=== PATIENT | male | born 1950 | race Caucasian/White ===

== ENCOUNTER 2021-10-17 22:04 | Emergency (ER) | payer OTHER, SELFPAY ==
[2021-10-17 22:14] VITALS: BP 133/75; PULSE 83; RESP 18; TEMP 36.6; O2SAT 100; BMI 22.4
== END 2021-10-18 00:32 | disposition left against medical advice (07) ==
PROVIDERS: Emergency Provider Emergency Medicine
CPT/HCPCS: 99281

== ENCOUNTER 2022-10-14 22:47 | Emergency (ER) | payer OTHER, SELFPAY ==
[2022-10-14 22:47] VITALS: BP 117/67; PULSE 67; RESP 19; TEMP 36.8; O2SAT 97; BMI 22.3
--- NOTE | 2022-10-14 23:04 | DI.RAD.S_ITS ---
PROCEDURE: XR CHEST 1V INDICATIONS: chest pain TECHNIQUE: One view of the chest was acquired. COMPARISON: None. FINDINGS: Surgical changes and devices: Electronic control device overlies the upper right chest with leads extending cephalad above the imaging margin.. Lungs and pleura: Lungs are clear except for left lower lobe linear scarring.. No pleural effusions or pneumothorax. Mediastinum: Mediastinal contours appear normal. Heart size is normal. Bones and chest wall: No suspicious bony lesions. Overlying soft tissues appear unremarkable. IMPRESSION: No definite source of acute onset chest pain found. Linear scarring left lung base. Control device as discussed. Dictated by: Jt Childress M.D. on 10/14/2022 at 23:45 Approved by: Jt Childress M.D. on 10/14/2022 at 23:47
[2022-10-14 23:13] LABS: Add Manual Diff / Slide Review NO; Basophils Absolute Auto 0 /uL (0-100); Basophils Percent Auto 0.6 % (0-2); Eosinophils Absolute Auto 100 /uL (0-450); Hematocrit 36.7 % (41-53); Hemoglobin 12.6 g/dL (13.5-17.5); Lymphocytes Absolute Auto 1600 /uL (1100-4500); Lymphocytes Percent Auto 26.5 % (25-40); Mean Corpuscular HGB Conc 34.2 % (30-36); Mean Corpuscular Hemoglobin 32.9 PG (26-34); Mean Corpuscular Volume 96.2 fL (80-100); Monocytes Absolute Auto 700 /uL (0-900); Neutrophils Absolute Auto 3700 /uL (1500-7000); Neutrophils Percent Auto 59.9 % (50-75); Platelet Count 162 X10^3/uL (150-400); Red Blood Cell Count 3.81 X10^6/uL (4.5-5.9); Red Cell Distribution Width 14.2 % (11.6-14.8); White Blood Cell Count 6.1 X10^3/uL (4.5-11.0)
[2022-10-14 23:17] LABS: PTT Partial Thromboplastin Tim 31 SECONDS (26-36)
[2022-10-14 23:20] LABS: Alanine Aminotransferase 8 IU/L (<50); Albumin 3.7 g/dL (3.5-5.0); Albumin Globulin Ratio 1.2 (1.0-2.8); Alkaline Phosphatase 98 U/L (38-126); Aspartate Aminotransferase 28 IU/L (17-59); BUN Creatinine Ratio 26.6 (6-22); Bilirubin Total 0.5 mg/dL (0.2-1.3); Blood Urea Nitrogen 17 mg/dL (9-20); Calcium 8.9 mg/dL (8.4-10.2); Carbon Dioxide 27 mmol/L (22-32); Chloride 102 mmol/L (98-107); Creatine Kinase 162 U/L (55-170); Estimated Glomerular Filt Rate > 60 mL/min (>60); Glucose 83 mg/dL (80-110); HEMOLYSIS < 15 (0-50); Lipase 49 U/L (23-300); Magnesium 1.9 mg/dL (1.6-2.3); Potassium 3.9 mmol/L (3.4-5.1); Sodium 135 mmol/L (137-145); Total Protein 6.7 g/dL (6.3-8.2)
[2022-10-14 23:31] LABS: Troponin I < 0.012 ng/mL (0.01-0.034)
[2022-10-15] VITALS (8 sets, daily range): BP systolic 107–163; BP diastolic 62–78; PULSE 58–69; RESP 16–24; O2SAT 95–100
[2022-10-15 01:33] LABS: Troponin I < 0.012 ng/mL (0.01-0.034)
--- NOTE | 2022-10-15 03:39 | ED_ITS ---
HPI - Chest Pain General Chief Complaint: Chest Pain Stated Complaint: neck pain Time Seen by Provider: 10/14/22 23:52 Source: patient and EMS Mode of arrival: EMS History of Present Illness HPI narrative: 71-year-old gentleman with a history of Parkinson's disease who recently underwent significant dental work with oral surgery for dental implants and temporary dentures placed while the implants are healing. Since this he has been having significant difficulty with talking, swallowing he has been sent to speech therapy and he continues to have difficulty in concerns for aspiration. He is concerned that the combination of his inappropriately aligned temporary teeth and his Parkinson's disease is going to lead to an aspiration pneumonia. This evening he developed increasing pain in the right side of his jaw with some vague eye discomfort. He went to a fire station around the corner from his house and the medic was concerned that this might be cardiac. He was given a single nitroglycerin which relieved the musculoskeletal pain of his neck interest transported the emergency department for further evaluation. He does not describe any chest pain, orthopnea, exertional dyspnea, palpitations. He has been having significant difficulty with speech, swallowing, eating all secondary to his temporary dentures that are far too large for his mouth in for worsening him into a class 3 orthodontic bite Related Data Allergies Allergy/AdvReac Type Severity Reaction Status Date / Time No Known Drug Allergies Allergy Verified 10/14/22 23:19 Review of Systems Review of Systems Narrative: Pertinent positive and negative findings as per HPI Patient History Medical History (Updated 10/15/22 @ 04:25 by Mónica Boykin MD) Parkinsons disease Social History Smoking Status: Never smoker Smoking Status: Never smoker tobacco type: cigarettes alcohol intake frequency: holidays/special occasions only Substance Use Type: does not use Exam Initial Vital Signs Initial Vital Signs: Vital Signs Temperature 98.2 F 10/14/22 22:47 Pulse Rate 67 10/14/22 22:47 Respiratory Rate 19 10/14/22 22:47 Blood Pressure 117/67 10/14/22 22:47 Pulse Oximetry 97 10/14/22 22:47 Oxygen Delivery Method Room Air 10/14/22 22:47 General: Healthy appearing, in no acute distress. Able to give a complete and coherent history. Well-nourished well-developed HEENT: Moist mucous membranes, normal sclera with reactive pupils, upper teeth/dentures are causing his upper lip 2 per to protrude, his lower dentures are overriding the lower jaw do not articulate in any way with the upper and are forcing his jaw forward almost 4 mm. He is having difficulty speaking and is using all neck muscles including his platysma muscle to simply manipulate his tongue to try to get words out because of the dramatically poorly fitted upper and lower temporary dentures Neck: No JVD, excessive accessory neck muscle use to compensate for dental issues Respiratory: Lungs are clear to auscultation, no wheezing no rales no rhonchi. Full and symmetrical air movement Cardiac: Regular rate and rhythm no murmurs no bruits Abdomen: Soft, nontender, good bowel tones, no flank pain Skin: Warm and dry, no rashes Neurologic: Grossly neurologically intact with no obvious asymmetries or abnormalities, no significant parkinsonian tremor or rigidity appreciated on today's exam Extremities: No trauma, well perfused Psych: Cooperative, appropriate insight and affect Course Orders Ordered: ED Orders 10/14/22 22:55 Complete Blood Count AUTO DIFF Stat Comprehensive Metabolic Panel Stat Lipase Stat Magnesium Stat PTT Partial Thromboplastin Yann Stat Prothrombin Time INR Stat Troponin & CK Cardiac Panel Stat 10/14/22 22:59 EKG-12 Lead Stat 10/14/22 23:04 XR chest 1V Stat 10/15/22 01:05 Troponin I Stat Vital Signs Vital signs: Vital Signs - 8 hr 10/14/22 22:47 10/15/22 01:38 Temperature 98.2 F Pulse Rate 67 59 L Respiratory Rate 19 18 Blood Pressure 117/67 Pulse Oximetry 97 100 Oxygen Delivery Method Room Air Room Air MDM - Chest Pain Lab Data 10/14/22 22:55 10/14/22 22:55 Labs: Lab Results 10/14/22 10/14/22 10/14/22 Range/Units 22:55 22:55 22:55 WBC 6.1 (4.5-11.0) X10^3/uL RBC 3.81 L (4.5-5.9) X10^6/uL Hgb 12.6 L (13.5-17.5) g/dL Hct 36.7 L (41-53) % MCV 96.2 (80-100) fL MCH 32.9 (26-34) PG MCHC 34.2 (30-36) % RDW 14.2 (11.6-14.8) % Plt Count 162 (150-400) X10^3/uL Neut % (Auto) 59.9 (50-75) % Lymph % (Auto) 26.5 (25-40) % [place] % (Auto) 11.0 (3-14) % Eos % (Auto) 2.0 (2-4) % Baso % (Auto) 0.6 (0-2) % Neut # (Auto) 3700 (0660-1155) /uL Lymph # (Auto) 1600 (5799-4546) /uL [place] # (Auto) 700 (0-900) /uL Eos # (Auto) 100 (0-450) /uL Baso # (Auto) 0 (0-100) /uL PT 12.0 (10.1-12.7) SECONDS INR 1.0 (0.9-1.3) APTT 31 (26-36) SECONDS Sodium 135 L (137-145) mmol/L Potassium 3.9 (3.4-5.1) mmol/L Chloride 102 (98-107) mmol/L Carbon Dioxide 27 (22-32) mmol/L BUN 17 (9-20) mg/dL Creatinine 0.64 L (0.66-1.25) mg/dL Estimated GFR > 60 (>60) mL/min BUN/Creatinine Ratio 26.6 H (6-22) Glucose 83 (80-110) mg/dL Calcium 8.9 (8.4-10.2) mg/dL Magnesium 1.9 (1.6-2.3) mg/dL Total Bilirubin 0.5 (0.2-1.3) mg/dL AST 28 (17-59) IU/L ALT 8 (<50) IU/L Alkaline Phosphatase 98 (38-126) U/L Total Creatine Kinase 162 (55-170) U/L Troponin I < 0.012 (0.01-0.034) ng/mL Total Protein 6.7 (6.3-8.2) g/dL Albumin 3.7 (3.5-5.0) g/dL Globulin 3.0 (1.7-4.1) g/dL Albumin/Globulin Ratio 1.2 (1.0-2.8) Lipase 49 (23-300) U/L 10/15/22 Range/Units 01:05 WBC (4.5-11.0) X10^3/uL RBC (4.5-5.9) X10^6/uL Hgb (13.5-17.5) g/dL Hct (41-53) % MCV (80-100) fL MCH (26-34) PG MCHC (30-36) % RDW (11.6-14.8) % Plt Count (150-400) X10^3/uL Neut % (Auto) (50-75) % Lymph % (Auto) (25-40) % [place] % (Auto) (3-14) % Eos % (Auto) (2-4) % Baso % (Auto) (0-2) % Neut # (Auto) (5122-4548) /uL Lymph # (Auto) (4752-4250) /uL [place] # (Auto) (0-900) /uL Eos # (Auto) (0-450) /uL Baso # (Auto) (0-100) /uL PT (10.1-12.7) SECONDS INR (0.9-1.3) APTT (26-36) SECONDS Sodium (137-145) mmol/L Potassium (3.4-5.1) mmol/L Chloride (98-107) mmol/L Carbon Dioxide (22-32) mmol/L BUN (9-20) mg/dL Creatinine (0.66-1.25) mg/dL Estimated GFR (>60) mL/min BUN/Creatinine Ratio (6-22) Glucose (80-110) mg/dL Calcium (8.4-10.2) mg/dL Magnesium (1.6-2.3) mg/dL Total Bilirubin (0.2-1.3) mg/dL AST (17-59) IU/L ALT (<50) IU/L Alkaline Phosphatase (38-126) U/L Total Creatine Kinase (55-170) U/L Troponin I < 0.012 (0.01-0.034) ng/mL Total Protein (6.3-8.2) g/dL Albumin (3.5-5.0) g/dL Globulin (1.7-4.1) g/dL Albumin/Globulin Ratio (1.0-2.8) Lipase (23-300) U/L MDM Narrative Medical decision making narrative: CC: Right-sided neck pain, acute uncertain prognosis Complicating co-morbidities: Parkinson's disease, recent dental implants with temporary dentures and no anatomic alignment with accessory muscle use to manipulate his jaw in every position including speech and swallowing. Data collected from: patient, Differential considered: Acute coronary syndrome, aortic dissection, acute neck strain Exam documented above, pertinent findings include: Dramatically inappropriately fitting dentures such that he is unable to speak, enunciate, swallow and is using multiple accessory neck muscles to try and accomplish these physical processes. Remainder of physical exam is entirely benign Lab Test results independently reviewed as above. Pertinent findings: Metabolic panel is reassuring Troponin and repeat troponin are both undetectable Independently reviewed EKG reveals sinus rhythm at a rate of 68. Leftward axis, left anterior fascicular block no acute ischemic changes. Imaging studies independently reviewed: Chest x-ray has no acute findings Discussion: 71-year-old gentleman with main complaint of right neck pain that was relieved by nitroglycerin when administered by medics. Cardiac workup is unremarkable. I suspect that the majority of his neck pain is secondary to accessory muscle use because of his poor dentition and inability to speak and swallow due to the large and non articulating temporary dentures. His HEART score is 1 for age only. At this point there is no indication of life- threatening etiology, acute coronary syndrome, dissection or alternate explanation that would require further imaging or hospital admission. I did suggest that he follow up with his dentist and ask them to drain either fit him with his appropriately fitting new dentures and at the very least re fit his temporary is so that he is not at such high aspiration risk and is actually able to eat food. At this point he is safe for discharge home Discharge Plan Departure Patient Disposition: Home Clinical Impression: Dysarthria Neck muscle strain Qualifiers: Encounter type: initial encounter Qualified Code(s): S16.1XXA - Strain of muscle, fascia and tendon at neck level, initial encounter Dysphagia Qualifiers: Dysphagia type: other dysphagia Qualified Code(s): R13.19 - Other dysphagia Instructions: DI for Musculoskeletal Pain Activity Restrictions/Additional Instructions: Thank you for coming in today Your cardiac workup was entirely reassuring. I do not see any life-threatening causes for your symptoms today. I suspect that the right-sided neck muscle pain that you are experiencing is related to your poorly fitting dentures. You are having to use your neck muscles in an entirely different way to compensate for the large dentures that are not allowing you to speak or swallow appropriately. I strongly encourage you to follow-up with your dentist to either expedite your real dentures or re-evaluate current ones so that they are not putting your health and safety at risk with such poor fit and dentition. If you find that you are getting worse or develop any new symptoms, please feel free to return to the emergency department for further evaluation. Stand Alone Forms: Patient Portal/API
== END 2022-10-15 04:36 | disposition home or self-care (01) ==
PROVIDERS: Emergency Provider Emergency Medicine
DX: S16.1XXA Strain of muscle, fascia and tendon at neck level, initial encounter (principal); R13.10 Dysphagia, unspecified; R47.1 Dysarthria and anarthria; R07.9 Chest pain, unspecified
CPT/HCPCS: 71045; 80053; 82550; 83690; 83735; 84484; 85025; 85610; 85730; 93005; 99283; 99284

== ENCOUNTER 2023-03-09 05:33 | Emergency (ER) | payer OTHER, SELFPAY ==
[2023-03-09] VITALS (7 sets, daily range): BP systolic 119–166; BP diastolic 77–94; PULSE 82–100; RESP 22; TEMP 36.4–36.7; O2SAT 95–100; BMI 20.7
--- NOTE | 2023-03-09 05:40 | DI.RAD.S_ITS ---
PROCEDURE: XR CHEST 2V INDICATIONS: possible aspiration on rice noodles TECHNIQUE: 2 views of the chest were acquired. COMPARISON: [facility], , XR CHEST 1V, 10/14/2022, 23:17. FINDINGS: Surgical changes and devices: There is a electronic device with leads pointing cephalic along the right neck. Lungs and pleura: Lungs are clear. No pleural effusions or pneumothorax. Mediastinum: Mediastinal contours are normal. Heart size is normal. Bones and chest wall: No suspicious bony abnormalities. Soft tissues appear unremarkable. IMPRESSION: No acute cardiopulmonary abnormality is seen. No significant discrepancy with the piece dye worker radiology preliminary report. Dictated by: Hamida Healy M.D. on 03/09/2023 at 8:08 Approved by: Hamida Healy M.D. on 03/09/2023 at 8:09
--- NOTE | 2023-03-09 06:15 | ED.GENADULT ---
HPI - General Adult General Chief complaint: Shortness of Breath/Dyspnea Stated complaint: aspirated? Time Seen by Provider: 03/09/23 05:33 Source: patient and EMS Mode of arrival: EMS History of Present Illness HPI narrative: 72-year-old male with history of Parkinson's disease presents by EMS for possible aspiration event. [place] he had a choking episode. His did the Heimlich maneuver and removed several noodles from his mouth, but was concerned that something may have been left behind and they called 911. Vital signs reported unremarkable en route. Related Data Allergies Allergy/AdvReac Type Severity Reaction Status Date / Time No Known Drug Allergies Allergy Verified 10/14/22 23:19 Review of Systems Review of Systems Narrative: Negative except as noted above Patient History Medical History (Updated 03/09/23 @ 06:27 by Heaven Hermosillo MD) Parkinsons disease Social History Smoking Status: Former smoker Smoking Status: Former smoker tobacco type: cigarettes alcohol intake frequency: holidays/special occasions only Substance Use Type: does not use Exam Initial Vital Signs Initial Vital Signs: Vital Signs Pulse Rate 100 H 03/09/23 05:37 Pulse Oximetry 98 03/09/23 05:37 Oxygen Delivery Method Room Air 03/09/23 05:37 Const: Awake, alert, no acute distress, nontoxic appearing Eyes: PERRL, EOMI, conjunctiva normal ENT: Atraumatic, dentition normal, mucous membranes moist, no foreign objects Cardiac: regular rate, regular rhythm RESP: unlabored, clear bilaterally, no wheezing GI: Atraumatic, soft, nontender, nondistended, no rebound, no guarding MSK: Atraumatic, full range of motion, pulses equal Skin: Warm, Dry, intact, no rashes Neuro: AO x3, CN II-XII grossly intact, moves all extremities Psych: affect normal, mood normal, not suicidal, not homicidal Course Course Course Narrative: Possible aspiration event, patient is concerned that there may be needlestick left behind because he can still feel it taste in the back of his throat. There is no foreign or food objects in the back of patient's throat. Lungs are clear to auscultation bilaterally. Two-view chest x-ray shows no evidence of foreign body or no sequela of aspiration. Patient counseled of chest x-ray results at bedside and supportive measures counseled for home Orders Ordered: ED Orders 03/09/23 05:40 Chest [XR chest 2V] Stat Vital Signs Vital signs: Vital Signs - 8 hr 03/09/23 05:39 Temperature 97.6 F Pulse Rate 93 H Respiratory Rate 22 Blood Pressure 166/94 H Pulse Oximetry 100 Oxygen Delivery Method Room Air Discharge Plan Departure Patient Disposition: Home Clinical Impression: Choking episode Aspiration of food Qualifiers: Encounter type: initial encounter Qualified Code(s): T17.928A - Food in respiratory tract, part unspecified causing other injury, initial encounter Instructions: DI for Aspiration Pneumonia Stand Alone Forms: Patient Portal/API
== END 2023-03-09 06:45 | disposition home or self-care (01) ==
PROVIDERS: Emergency Provider Emergency Medicine
DX: T17.928A Food in respiratory tract, part unspecified causing other injury, initial encounter (principal); W44.F3XA Food entering into or through a natural orifice, initial encounter; Y93.89 Activity, other specified; Y92.59 Other trade areas as the place of occurrence of the external cause; Y99.8 Other external cause status
CPT/HCPCS: 71046; 99281; 99283

== ENCOUNTER 2023-12-31 18:11 | Emergency (ER) | payer OTHER, SELFPAY ==
[2023-12-31] VITALS (8 sets, daily range): BP systolic 112–133; BP diastolic 65–92; PULSE 59–68; RESP 17–18; TEMP 36.8; O2SAT 96–97; BMI 20.7
--- NOTE | 2023-12-31 18:59 | DI.CT.S_ITS ---
PROCEDURE: CT HEAD/BRAIN WO CON INDICATIONS: parkinsons, worsening delirium x 1 year TECHNIQUE: Noncontrast 4.5 mm thick angled axial sections acquired from the foramen magnum to the vertex, with coronal and sagittal reformats. For radiation dose reduction, the following was used: automated exposure control, adjustment of mA and/or kV according to patient size. COMPARISON: None. FINDINGS: Image quality: Diagnostic. CSF spaces: Basal cisterns are patent. No extra-axial fluid collections. The ventricles are symmetric in size and shape. Brain: No intracranial bleeds or masses. There is cerebral volume loss for age, with resultant ventricular and sulcal prominence. There are periventricular and deep white matter chronic small vessel ischemic changes. There is intracranial internal carotid artery atherosclerosis. Bilateral thalamic stimulators are present. Skull and face: Calvarium and visualized facial bones appear intact, without suspicious lesions. Sinuses: Visualized sinuses and mastoids are clear. IMPRESSION: 1. No acute intracranial process. 2. Moderate atrophy and chronic microvascular ischemic changes. Dictated by: Cristina Dunham M.D. on 12/31/2023 at 19:43 Approved by: Cristina Dunham M.D. on 12/31/2023 at 19:44
--- NOTE | 2023-12-31 19:00 | ED.AMS ---
HPI - Altered Mental Status General Chief Complaint: Altered Mental Status Stated Complaint: Episode of delirium, Unable to walk Time Seen by Provider: 12/31/23 18:48 Source: patient and family Mode of arrival: Wheelchair History of Present Illness HPI narrative: 73-year-old male with history of Parkinson's disease presents by private vehicle from home for 1 year of gradually increasing delirium episodes. Patient states that over the last year his episodes have gone from once or twice per month to nearly daily. at bedside states patient seems to almost dissociate, and sometimes is unable to walk. These episodes seem to be associated with stress and stressful events. Patient states that he sees Dr. Mallory of [place] [facility] for his parkinson's disease. Patient and his state that they called the [facility] line this evening, and it was recommended that he come to the ER for evaluation. Related Data Home Medications Medication Instructions Recorded Confirmed buspirone 10 mg tablet 10 mg PO BID 12/31/23 12/31/23 carbidopa ER 25 mg-levodopa 100 mg 1 tab PO QID 12/31/23 12/31/23 tablet,extended release divalproex 125 mg capsule,delayed mg PO TID 12/31/23 release sprinkle (Depakote Sprinkles) lamotrigine 100 mg tablet 100 mg PO DAILY 12/31/23 12/31/23 lithium carbonate 300 mg capsule 450 mg PO DAILY 12/31/23 12/31/23 olanzapine 10 mg tablet (Zyprexa) 10 mg PO DAILY 12/31/23 12/31/23 trazodone 50 mg tablet 50 mg PO ONCE PM 12/31/23 12/31/23 Previous Rx's Medication Instructions Recorded hydroxyzine HCl 50 mg tablet 50 mg PO BEDTIME #60 tabs 12/31/23 Allergies Allergy/AdvReac Type Severity Reaction Status Date / Time No Known Drug Allergies Allergy Verified 12/31/23 18:22 Patient History Medical History Parkinsons disease Social History Smoking Status: Former smoker Smoking Status: Former smoker tobacco type: cigarettes alcohol intake frequency: holidays/special occasions only Substance Use Type: does not use Exam Initial Vital Signs Initial Vital Signs: Vital Signs Temperature 98.3 F 12/31/23 18:16 Pulse Rate 61 12/31/23 18:16 Respiratory Rate 17 12/31/23 18:16 Blood Pressure 121/66 12/31/23 18:16 Pulse Oximetry 97 12/31/23 18:16 Oxygen Delivery Method Room Air 12/31/23 18:16 Const: Awake, alert, no acute distress, nontoxic appearing, appears frail Cardiac: regular rate, regular rhythm RESP: unlabored, clear bilaterally, no wheezing GI: Soft, nontender, nondistended, no rebound, no guarding MSK: Atraumatic, full range of motion, pulses equal Skin: Warm, Dry, intact, no rashes Neuro: AO x3, CN II-XII grossly intact, moves all extremities Course Orders Ordered: ED Orders 12/31/23 18:59 CT head/brain wo con Stat 12/31/23 19:19 CBC Auto Diff [Complete Blood Count AUTO DIFF] Stat CMP [Comprehensive Metabolic Panel] Stat [place] Stat TSH [Thyroid Stimulating Hormone] Stat 12/31/23 19:22 Ictotest Urine Stat Urinalysis and Microscopic Stat Urine Drug Screen, Rapid Stat Discontinued Medications Hydroxyzine HCl (Hydroxyzine Hcl 25 Mg Tablet) 50 mg PO NOW ONE Stop: 12/31/23 20:40 Last Admin: 12/31/23 20:47 Dose: 50 mg Documented By: MARCO Vital Signs Vital signs: Vital Signs - 8 hr 12/31/23 18:49 12/31/23 19:00 12/31/23 19:00 Pulse Rate 65 66 Respiratory Rate Blood Pressure 113/70 Pulse Oximetry 97 97 12/31/23 19:17 12/31/23 19:18 12/31/23 19:30 Pulse Rate 59 L 67 Respiratory Rate Blood Pressure 112/92 H Pulse Oximetry 97 96 12/31/23 20:00 12/31/23 20:00 12/31/23 20:30 Pulse Rate 68 67 Respiratory Rate 18 Blood Pressure 124/65 Pulse Oximetry 96 97 12/31/23 20:30 Pulse Rate Respiratory Rate Blood Pressure 133/75 Pulse Oximetry MDM - Altered Mental Status Lab Data 12/31/23 19:19 12/31/23 19:19 Labs: Lab Results 12/31/23 12/31/23 12/31/23 Range/Units 19:19 19:22 19:22 WBC 6.0 (4.5-11.0) X10^3/uL RBC 4.01 L (4.5-5.9) X10^6/uL Hgb 13.3 L (13.5-17.5) g/dL Hct 38.7 L (41-53) % MCV 96.4 (80-100) fL MCH 33.2 (26-34) PG MCHC 34.4 (30-36) % RDW 13.9 (11.6-14.8) % Plt Count 206 (150-400) X10^3/uL Neut % (Auto) 64.5 (50-75) % Lymph % (Auto) 22.6 L (25-40) % [place] % (Auto) 10.7 (3-14) % Eos % (Auto) 2.1 (2-4) % Baso % (Auto) 0.1 (0-2) % Neut # (Auto) 3900 (3549-4836) /uL Lymph # (Auto) 1300 (5410-7826) /uL [place] # (Auto) 600 (0-900) /uL Eos # (Auto) 100 (0-450) /uL Baso # (Auto) 0 (0-100) /uL Sodium 137 (137-145) mmol/L Potassium 3.6 (3.4-5.1) mmol/L Chloride 105 (98-107) mmol/L Carbon Dioxide 27 (22-32) mmol/L BUN 22 H (9-20) mg/dL Creatinine 0.87 (0.66-1.25) mg/dL Estimated GFR > 60 (>60) mL/min BUN/Creatinine Ratio 25.3 H (6-22) Glucose 100 (80-110) mg/dL Calcium 9.4 (8.4-10.2) mg/dL Total Bilirubin 0.6 (0.2-1.3) mg/dL AST 68 H (17-59) IU/L ALT 10 (<50) IU/L Alkaline Phosphatase 63 (38-126) U/L Total Protein 6.6 (6.3-8.2) g/dL Albumin 3.8 (3.5-5.0) g/dL Globulin 2.8 (1.7-4.1) g/dL Albumin/Globulin Ratio 1.4 (1.0-2.8) TSH 0.287 L (0.47-4.68) uIU/mL Urine Color Yellow Urine Appearance Clear Urine pH 6.0 Normal (4.5-8.0) Ur Specific [place] 1.020 (1.000-1.035) Urine Protein Negative (Negative) Urine Glucose (UA) Negative (Negative) g/dL Urine Ketones 1+ H (NEGATIVE) Urine Occult Blood Negative (Negative) Urine Nitrate Negative (Negative) Urine Bilirubin 1+ H (NEGATIVE) Ur Bilirubin Confirm Negative (Negative) Urine Urobilinogen 1.0 (0.2) E.U./dL Ur Leukocyte Esterase Negative (NEGATIVE) Urine RBC None seen (0-5/HPF) Urine WBC 0-1/hpf (0-5/HPF) Ur Squamous Epith Cells None seen (0-5/HPF) Amorphous Sediment 1+ Urine Bacteria None seen (None) Urine Mucus 1+ H (Negative) Ur Culture Indicated? Cult not indicated Vol Urine Centrifuged 10ml (spun) U Opiates 300ng/mL cut Negative (Negative) Ur Oxycodone Screen Negative (Negative) Urine Methadone Screen Negative (Negative) Ur Barbiturates Screen Negative (Negative) U Tricyclic Antidepress Negative (Negative) Ur Phencyclidine Scrn Negative (Negative) Ur Amphetamines Screen Negative (Negative) U Methamphetamines Scrn Negative (Negative) Ur MDMA Scrn (Ecstasy) Negative (Negative) U Benzodiazepines Scrn Negative (Negative) [place] 0.5 L (0.6-1.2) mmol/L Urine Cocaine Screen Negative (Negative) U Marijuana (THC) Screen Negative (Negative) Urine Specific [place] Normal (Normal) Ur Creatinine Normal (Normal) [facility] Narrative Medical decision making narrative: Worsening episodes delirium and possible disassociation that occur at night. Patient states that he was having trouble sleeping due to these episodes. These have gradually increased in frequency over the last year. Patient was currently awake, alert, oriented, not exhibiting signs of delirium or disassociation. Laboratory work reviewed, no significant abnormalities identified. Patient was subtherapeutic on his lithium. CT brain negative for acute findings. Case discussed with Dr. Dario Hsieh of [place] [facility]. Patient's medication list reviewed, requesting Neurology recommendations for patient's mental status changes at night due to high-risk of polypharmacy. Recommended addition of nighttime hydroxyzine for sleep as well as close neurology follow up. Patient and his informed of results and neurology recommendations. First dose given to patient to take when he gets home before bed. Discharge Plan Departure Patient Disposition: Home Clinical Impression: Delirium due to general medical condition Instructions: DI for Altered Mental Status Activity Restrictions/Additional Instructions: Neurology at [facility] recommended starting nighttime hydroxyzine. Call for a follow up appointment. Your laboratory work here today was overall reassuring, however your lithium level was 0.5. Normal range is 0.6-1.2. Speak to the doctor that prescribes your lithium for any dosing adjustments. Prescriptions: New hydroxyzine HCl 50 mg tablet 50 mg PO BEDTIME Qty: 60 0RF No Action carbidopa-levodopa 25-100 mg Tablet Extended Release 1 tab PO QID trazodone 50 mg tablet 50 mg PO ONCE PM lithium carbonate 300 mg capsule 450 mg PO DAILY buspirone 10 mg tablet 10 mg PO BID lamotrigine 100 mg tablet 100 mg PO DAILY olanzapine [Zyprexa] 10 mg Tablet 10 mg PO DAILY divalproex [Depakote Sprinkles] 125 mg Capsule, Delayed Rel Sprinkle PO TID Referrals: Domenico Olivas MD [Primary Care Provider] - Stand Alone Forms: Patient Portal/API
--- NOTE | 2023-12-31 19:22 | PC.NURSE ---
pt has had an increase in his parkinson s/s nightly with confusion, tonight came to the ed to be evaluated,pt is alert and oriented, no obvious tremors noted, pt cooperative with care, at bedside
[2023-12-31 19:25] LABS: Add Manual Diff / Slide Review NO; Basophils Absolute Auto 0 /uL (0-100); Basophils Percent Auto 0.1 % (0-2); Eosinophils Absolute Auto 100 /uL (0-450); Eosinophils Percent Auto 2.1 % (2-4); Hematocrit 38.7 % (41-53); Hemoglobin 13.3 g/dL (13.5-17.5); Lymphocytes Absolute Auto 1300 /uL (1100-4500); Lymphocytes Percent Auto 22.6 % (25-40); Mean Corpuscular HGB Conc 34.4 % (30-36); Mean Corpuscular Hemoglobin 33.2 PG (26-34); Mean Corpuscular Volume 96.4 fL (80-100); Monocytes Absolute Auto 600 /uL (0-900); Monocytes Percent Auto 10.7 % (3-14); Neutrophils Absolute Auto 3900 /uL (1500-7000); Neutrophils Percent Auto 64.5 % (50-75); Platelet Count 206 X10^3/uL (150-400); Red Blood Cell Count 4.01 X10^6/uL (4.5-5.9); Red Cell Distribution Width 13.9 % (11.6-14.8)
[2023-12-31 19:31] LABS: Appearance Urine UA CLEAR; Bilirubin Urine UA 1+ (NEGATIVE); Color Urine UA YELLOW; Glucose Urine UA NEGATIVE (Negative); Ketones Urine UA 1+ (NEGATIVE); Leukocyte Esterase Urine UA NEGATIVE (NEGATIVE); Nitrite Urine UA NEGATIVE (Negative); Occult Blood Urine UA NEGATIVE (Negative); Protein Urine UA NEGATIVE (Negative)
[2023-12-31 19:32] LABS: UR Morphine/Opiate cutoff 300 Negative (Negative); Ur Creatinine Normal (Normal); Ur Specific Gravity Normal (Normal); Urine Barbiturates Negative (Negative); Urine Benzodiazepines Negative (Negative); Urine Cocaine Negative (Negative); Urine MDMA Negative (Negative); Urine Methadone Negative (Negative); Urine Methamphetamines Negative (Negative); Urine Oxycodone Negative (Negative); Urine Phencyclidine Negative (Negative); Urine Tetrahydrocannabinol Negative (Negative); Urine Tricyclic Antidepressant Negative (Negative); Urine pH Normal (Normal)
[2023-12-31 19:33] LABS: Urine Amphetamines Negative (Negative)
[2023-12-31 19:40] LABS: Amorphous Sediment Urine 1+; Bacteria Urine None Seen; Culture Indicated Urine Cult Not Indicated; Mucus Urine 1+ (Negative); RBC Urine None Seen (0-5/HPF); Squamous Epithelial Cell Urine None Seen (0-5/HPF); Urine Volume 10mL (spun); WBC Urine 0-1/HPF (0-5/HPF)
[2023-12-31 19:42] LABS: Ictotest Urine Negative (Negative)
[2023-12-31 19:44] LABS: Alanine Aminotransferase 10 IU/L (<50); Albumin 3.8 g/dL (3.5-5.0); Albumin Globulin Ratio 1.4 (1.0-2.8); Alkaline Phosphatase 63 U/L (38-126); Aspartate Aminotransferase 68 IU/L (17-59); BUN Creatinine Ratio 25.3 (6-22); Bilirubin Total 0.6 mg/dL (0.2-1.3); Blood Urea Nitrogen 22 mg/dL (9-20); Calcium 9.4 mg/dL (8.4-10.2); Carbon Dioxide 27 mmol/L (22-32); Chloride 105 mmol/L (98-107); Estimated Glomerular Filt Rate > 60 mL/min (>60); Globulin 2.8 g/dL (1.7-4.1); Glucose 100 mg/dL (80-110); HEMOLYSIS 16 (0-50); Potassium 3.6 mmol/L (3.4-5.1); Sodium 137 mmol/L (137-145); Total Protein 6.6 g/dL (6.3-8.2)
[2023-12-31 19:50] LABS: Lithium 0.5 mmol/L (0.6-1.2)
[2023-12-31 20:15] LABS: Thyroid Stimulating Hormone 0.287 uIU/mL (0.47-4.68)
[2023-12-31] MEDS: hydrOXYzine HCL 25 MG TABLET 50 MG PO (20:47)
== END 2023-12-31 21:00 | disposition home or self-care (01) ==
PROVIDERS: Emergency Provider Emergency Medicine; Family Provider Internal Medicine; PCP Internal Medicine
DX: R41.0 Disorientation, unspecified (principal); G20.A1 Parkinson's disease without dyskinesia, without mention of fluctuations
CPT/HCPCS: 36415; 70450; 80053; 80178; 80305; 81001; 84443; 85025; 99284; A9270

== ENCOUNTER → 2024-04-24 12:53 | Outpatient (CLI) | payer OTHER, SELFPAY ==
--- NOTE | 2024-04-24 12:58 | DI.MRI.S_ITS ---
PROCEDURE: MR LUMBAR SPINE WO CON INDICATIONS: BILATERAL SCIATICA TECHNIQUE: Noncontrast sagittal T1 spin echo and T2 fast echo, sagittal STIR, and T2 fast spin echo through the lumbar spine. In cases with scoliosis, additional coronal T2 fast spin echo may be performed. COMPARISON: None. FINDINGS: Image quality: Excellent. Alignment and Curvature: There is trace retrolisthesis of T12 on L1, L1 on L2, L2 on L3, L3 on L4. Bone Marrow: Marrow is of normal overall signal. No acute vertebral body compression fractures. Compression deformity at L2 as well as L1 appear chronic. Spinal Cord: Conus medullaris terminates at the L1 level. Visualized cord demonstrates normal signal and size. 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 Paraspinous Soft Tissues: No paravertebral masses. Simple hepatic cyst. Discs: Multilevel moderate disc desiccation most prominent at L4-5. T12-L1: Mild disc bulge without spinal stenosis or foraminal narrowing. Facet and ligamentum flavum hypertrophy are present. L1-L2: Mild disc bulge without spinal stenosis. No foraminal narrowing. L2-L3: Mild disc bulge with mild spinal stenosis. [id number] bilateral foraminal narrowing, left greater than right with facet and ligamentum flavum hypertrophy. L3-L4: Mild disc bulge with moderate to severe spinal stenosis. Severe bilateral foraminal narrowing, left greater than right with slight compression of the exiting left L3 nerve roots. Facet and ligamentum flavum hypertrophy are present. L4-L5: Mild disc bulge without spinal stenosis. Severe left foraminal narrowing with minimal compression of the exiting left L4 nerve roots. Right foraminal narrowing. L5-S1: Mild disc bulge including left and right lateral/foraminal extensions. There is moderate to severe narrowing through the subarticular recess on the left with moderate to severe foraminal narrowing. Moderate foraminal narrowing is present on the right with facet and ligamentum flavum hypertrophy. IMPRESSION: Multilevel disc bulges. Multilevel spinal stenosis most severe at L3-4 secondary to disc bulge with contributing effect of facet/ligamentum flavum arthropathy. Multilevel significant foraminal narrowing with areas of nerve root compression as above predominantly secondary to facet and ligamentum flavum arthropathy. Dictated by: Cristina Dunham M.D. on 04/27/2024 at 15:53 Approved by: Cristina Dunham M.D. on 04/27/2024 at 15:56
== END ==
PROVIDERS: Referring Provider Psychiatry & Neurology Neurology; Visit Provider Psychiatry & Neurology Neurology
DX: M51.16 Intervertebral disc disorders with radiculopathy, lumbar region (principal); M51.17 Intervertebral disc disorders with radiculopathy, lumbosacral region; M48.26 Kissing spine, lumbar region; M48.27 Kissing spine, lumbosacral region; M48.061 Spinal stenosis, lumbar region without neurogenic claudication; M48.07 Spinal stenosis, lumbosacral region
CPT/HCPCS: 72148

== ENCOUNTER 2024-10-26 09:02 | Emergency (ER) | payer OTHER, SELFPAY ==
[2024-10-26] VITALS (8 sets, daily range): BP systolic 146–152; BP diastolic 68–75; PULSE 65–85; RESP 17–18; TEMP 37; O2SAT 94–98
--- NOTE | 2024-10-26 09:16 | EKG_ITS ---
[address] [address] Test Date: 2024-10-26 Pat Name: Corby Portillo Department: [facility] Room: Gender: Male Overhauler: CHAN : 1950 Requested By: Order Number: [id number] Reading MD: Freddy Castro Measurements Intervals [place] Rate: 70 P: 49 MA: 164 QRS: -47 QRSD: 90 T: -9 QT: 390 QTc: 421 Interpretive Statements Normal sinus rhythm Left anterior fascicular block Septal infarct , age undetermined Electronically Signed On 11-07-2024 8:20:50 PDT by Freddy Castro
--- NOTE | 2024-10-26 09:20 | DI.RAD.S_ITS ---
PROCEDURE: XR CHEST 2V INDICATIONS: cough TECHNIQUE: 2 views of the chest were acquired. COMPARISON: [facility], CR, XR CHEST 1V, 10/14/2022, 23:17. [facility], CT, CT HEAD/BRAIN WO CON, 12/31/2023, 19:04. [facility], CR, XR CHEST 2V, 03/09/2023, 5:42. FINDINGS: Surgical changes and devices: Right chest pulse generator for deep brain stimulator Lungs and pleura: Lungs are clear. No pleural effusions or pneumothorax. Mediastinum: Mediastinal contours are normal. Heart size is normal. Atherosclerotic vascular calcification noted in the aortic arch. Bones and chest wall: Osteopenic compression fractures remain unchanged from 2022 IMPRESSION: No acute cardiopulmonary abnormality is seen. Approved by: Quinn Sheriff M.D. on 10/26/2024 at 8:58
--- NOTE | 2024-10-26 09:29 | ED.GENADULT ---
HPI - General Adult General Chief complaint: Shortness of Breath/Dyspnea Stated complaint: Possible pneumonia Time Seen by Provider: 10/26/24 09:10 Source: patient Mode of arrival: Family Vehicle History of Present Illness HPI narrative: 74 years old male with history of Parkinson disease came in today complaining of lots of coughing with dry cough, right-sided chest pain, shortness of breath, generalized weakness for the last 3 days without fever, chills, coughing blood, nausea vomiting, leg pain, leg swelling, dizziness, loss of consciousness, change in his chronic back pain, abdominal pain, diarrhea, constipation, urine problem, injury. Related Data Home Medications ?Medication ?Instructions ?Recorded ?Confirmed buspirone 10 mg tablet 10 mg PO BID 12/31/23 12/31/23 carbidopa ER 25 mg-levodopa 100 mg 1 tab PO QID 12/31/23 12/31/23 tablet,extended release divalproex 125 mg capsule,delayed mg PO TID 12/31/23 release sprinkle (Depakote Sprinkles) lamotrigine 100 mg tablet 100 mg PO DAILY 12/31/23 12/31/23 lithium carbonate 300 mg capsule 450 mg PO DAILY 12/31/23 12/31/23 olanzapine 10 mg tablet (Zyprexa) 10 mg PO DAILY 12/31/23 12/31/23 trazodone 50 mg tablet 50 mg PO ONCE PM 12/31/23 12/31/23 Previous Rx's ?Medication ?Instructions ?Recorded hydroxyzine HCl 50 mg tablet 50 mg PO BEDTIME #60 tabs 12/31/23 amoxicillin 875 mg-potassium 1 tab PO Q12H #20 tabs 10/26/24 clavulanate 125 mg tablet benzonatate 200 mg capsule 200 mg PO TID PRN cough #20 caps 10/26/24 doxycycline monohydrate 100 mg 100 mg PO BID #20 tabs 10/26/24 tablet Allergies Allergy/AdvReac Type Severity Reaction Status Date / Time No Known Drug Allergies Allergy Verified 10/26/24 09:21 Review of Systems Review of Systems Narrative: Positive for right-sided chest pain, shortness of breath, cough. Negative for fever, chills, coughing blood, nausea vomiting, leg pain, leg swelling, dizziness, loss of consciousness, change in his chronic back pain, abdominal pain, diarrhea, constipation, urine problem, injury. Patient History Medical History Parkinsons disease Social History Smoking Status: Former smoker Smoking Status: Former smoker tobacco type: cigarettes alcohol intake frequency: holidays/special occasions only Exam Initial Vital Signs Initial Vital Signs: Vital Signs Pulse Rate 82 10/26/24 09:12 Pulse Oximetry 98 10/26/24 09:12 Oxygen Delivery Method Room Air 10/26/24 09:12 Const General: cooperative, comfortable, well developed, No acute distress and anxious Neck Neck: supple Resp Other: Rales both lower lungs. No wheezing or rhonchi. No respiratory distress. Cardio Other: Normal S1-S2 without murmur. Regular rhythm. No tachycardia. GI Other: Soft nontender, nondistention. No guarding or rebound tenderness. Skin General: no rashes or lesions noted Neuro Other: Alert oriented x4. Answers all questions appropriately and moving all extremities. Extrem Other: No pedal edema on both legs. Course Orders Ordered: ED Orders 10/26/24 09:11 Covid-19 + FLU A/B + RSV - PCR Stat 10/26/24 09:16 EKG-12 Lead Stat Measure peak expiratory flow STAT RT Consult Eval and Treat STAT 10/26/24 09:20 XR chest 2V Stat 10/26/24 09:41 Complete Blood Count AUTO DIFF Stat Comprehensive Metabolic Panel Stat D Dimer Stat Lactate (Lactic Acid) Stat NT-proBNP (BNP-Adult 18+) Stat Prothrombin Time INR Stat Troponin I Stat 10/26/24 11:44 CT angio chest PE protocol Stat Vital Signs Vital signs: Vital Signs - 8 hr 10/26/24 09:12 10/26/24 09:21 10/26/24 09:34 Temperature 98.6 F Pulse Rate 82 85 78 Respiratory Rate 17 Blood Pressure 152/68 H Pulse Oximetry 98 97 97 Oxygen Delivery Method Room Air Room Air 10/26/24 10:00 10/26/24 10:30 10/26/24 11:00 Temperature Pulse Rate 73 71 72 Respiratory Rate Blood Pressure Pulse Oximetry 94 94 94 Oxygen Delivery Method 10/26/24 11:30 Temperature Pulse Rate 65 Respiratory Rate Blood Pressure Pulse Oximetry 96 Oxygen Delivery Method Medical Decision Making Lab Data 10/26/24 09:41 10/26/24 09:41 Labs: Lab Results 10/26/24 10/26/24 Range/Units 09:11 09:41 WBC 5.0 (4.5-11.0) X10^3/uL RBC 4.54 (4.5-5.9) X10^6/uL Hgb 15.2 (13.5-17.5) g/dL Hct 44.4 (41-53) % MCV 97.9 (80-100) fL MCH 33.4 (26-34) PG MCHC 34.1 (30-36) % RDW 14.3 (11.6-14.8) % Plt Count 165 (150-400) X10^3/uL Neut % (Auto) 60.9 (50-75) % Lymph % (Auto) 20.8 L (25-40) % [place] % (Auto) 14.7 H (3-14) % Eos % (Auto) 2.9 (2-4) % Baso % (Auto) 0.7 (0-2) % Neut # (Auto) 3000 (8643-3050) /uL Lymph # (Auto) 1000 L (5210-3123) /uL [place] # (Auto) 700 (0-900) /uL Eos # (Auto) 100 (0-450) /uL Baso # (Auto) 0 (0-100) /uL PT 11.7 (9.4-12.5) SECONDS INR 1.0 (0.9-1.3) D-Dimer 857 H (<500) ng/ml Sodium 141 (137-145) mmol/L Potassium 4.3 (3.4-5.1) mmol/L Chloride 108 H (98-107) mmol/L Carbon Dioxide 27 (22-32) mmol/L BUN 14 (9-20) mg/dL Creatinine 0.89 (0.66-1.25) mg/dL Estimated GFR > 60 (>60) mL/min BUN/Creatinine Ratio 15.7 (6-22) Glucose 108 H (70-99) mg/dL Lactate 1.8 (0.7-2.1) mmol/L Calcium 9.5 (8.4-10.2) mg/dL Total Bilirubin 0.6 (0.2-1.3) mg/dL AST 35 (17-59) IU/L ALT 14 (<50) IU/L Alkaline Phosphatase 77 (38-126) U/L Troponin I < 0.012 (0.01-0.034) ng/mL NT-Pro-B Natriuret Pep 58 (<125) pg/mL Total Protein 7.2 (6.3-8.2) g/dL Albumin 4.3 (3.5-5.0) g/dL Globulin 2.9 (1.7-4.1) g/dL Albumin/Globulin Ratio 1.5 (1.0-2.8) SARS-CoV-2 (PCR) Negative (Negative) Influenza A (RT-PCR) Flu a negative (NEGATIVE) Influenza B (RT-PCR) Flu b negative (NEGATIVE) RSV (PCR) Negative (Negative) Imaging Data CTA chest: Radiologist's Impression: PROCEDURE: CT ANGIO CHEST PE PROTOCOL INDICATIONS: Shortness of breath, right-sided chest pain, positive D-dime TECHNIQUE: After the administration of intravenous contrast, 2 mm thick sections acquired from the pulmonary apices to the posterior costophrenic angles. 3-dimensional maximum intensity projection (MIP) coronal and sagittal reformats were then acquired through the thorax. For radiation dose reduction, the following was used: automated exposure control, adjustment of mA and/or kV according to patient size. COMPARISON: None. FINDINGS: Image quality: Diagnostic. Pulmonary arteries: Pulmonary arteries are normal in size, and demonstrate no intraluminal filling defects to suggest central pulmonary embolism. Coronary artery vascular calcifications Lower Neck: No enlarged lymph nodes. Thyroid: No thyroid nodules which require sonographic follow up, per consensus guidelines. Axillae: No enlarged lymph nodes. Chest Wall: Unremarkable. Bones: Unremarkable. Lungs and Pleura: Left lower lobe focal consolidation and infiltrate Heart: Heart size is normal. No pericardial effusion. Thoracic Vessels: No aortic aneurysm. Mediastinum and Lucy: No enlarged lymph nodes. Esophagus: No wall thickening. No hiatal hernia. Upper Abdomen: Visualized upper abdomen solid organs and bowel loops appear normal. IMPRESSION: No evidence of pulmonary embolism, aortic dissection or aneurysm. Left lower lobe pneumonia Approved by: Quinn Sheriff M.D. on 10/26/2024 at 12:03 Chest x-ray: Radiologist's Impression: PROCEDURE: XR CHEST 2V INDICATIONS: cough TECHNIQUE: 2 views of the chest were acquired. COMPARISON: [facility], CR, XR CHEST 1V, 10/14/2022, 23:17. [facility], CT, CT HEAD/BRAIN WO CON, 12/31/2023, 19:04. [facility], CR, XR CHEST 2V, 03/09/2023, 5:42. FINDINGS: Surgical changes and devices: Right chest pulse generator for deep brain stimulator Lungs and pleura: Lungs are clear. No pleural effusions or pneumothorax. Mediastinum: Mediastinal contours are normal. Heart size is normal. Atherosclerotic vascular calcification noted in the aortic arch. Bones and chest wall: Osteopenic compression fractures remain unchanged from 2022 IMPRESSION: No acute cardiopulmonary abnormality is seen. Approved by: Quinn Sheriff M.D. on 10/26/2024 at 8:58 ECG Data Interpretation: EKG showed normal sinus rhythm at 70 beats per minute with inverted T-wave in lead [address] changes. MDM Narrative Additional Information: 74 years old male came today complaining of coughing, right-sided chest pain, shortness of breath. His lung exam showed rales on both lower lung. His CV exam, abdominal exam was benign. His COVID, influenza, RSV were negative. His CBC show normal white cell count red cell count. His D-dimer was elevated 857. His PT INR was normal. His CMP showed chloride 108 otherwise normal CMP. His troponin was normal. His CTA chest showed no PE but left lower lobe pneumonia. The chest x-ray showed no acute finding. He was sent home with doxycycline, Augmentin, benzonatate. I asked him to follow up with his PCP outpatient. Return to the ED precaution was given. Discharge Plan Departure Patient Disposition: Home Clinical Impression: Community acquired pneumonia Instructions: DI for Pneumonia -- Adult Activity Restrictions/Additional Instructions: Please follow-up with your primary care doctor in next 1-2 weeks. Please come back to the emergency room if any worsening symptoms including but not limited to chest pain, shortness of breath, fever, low blood pressure, chills, nausea vomiting. Prescriptions: New doxycycline monohydrate 100 mg tablet 100 mg PO BID Qty: 20 0RF amoxicillin-pot clavulanate 875-125 mg tablet 1 tab PO Q12H Qty: 20 0RF benzonatate 200 mg capsule 200 mg PO TID PRN (Reason: cough) Qty: 20 0RF No Action carbidopa-levodopa 25-100 mg Tablet Extended Release 1 tab PO QID trazodone 50 mg tablet 50 mg PO ONCE PM lithium carbonate 300 mg capsule 450 mg PO DAILY buspirone 10 mg tablet 10 mg PO BID lamotrigine 100 mg tablet 100 mg PO DAILY olanzapine [Zyprexa] 10 mg Tablet 10 mg PO DAILY divalproex [Depakote Sprinkles] 125 mg Capsule, Delayed Rel Sprinkle PO TID hydroxyzine HCl 50 mg tablet 50 mg PO BEDTIME Qty: 60 0RF Stand Alone Forms: Patient Portal/API
[2024-10-26 10:00] LABS: Add Manual Diff / Slide Review NO; Hematocrit 44.4 % (41-53); Hemoglobin 15.2 g/dL (13.5-17.5); Lymphocytes Absolute Auto 1000 /uL (1100-4500); Mean Corpuscular HGB Conc 34.1 % (30-36); Mean Corpuscular Hemoglobin 33.4 PG (26-34); Mean Corpuscular Volume 97.9 fL (80-100); Platelet Count 165 X10^3/uL (150-400)
[2024-10-26 10:01] LABS: Influenza A - CEPHEID Flu A NEGATIVE (NEGATIVE); Influenza B - CEPHEID Flu B NEGATIVE (NEGATIVE)
[2024-10-26 10:03] LABS: COVID-19 CEPHEID 4-PLEX PCR Negative (Negative)
[2024-10-26 10:06] LABS: INR 1.0 (0.9-1.3); Prothrombin Time 11.7 SECONDS (9.4-12.5)
[2024-10-26 10:09] LABS: Lactate (Lactic Acid) 1.8 mmol/L (0.7-2.1)
[2024-10-26 10:10] LABS: Alanine Aminotransferase 14 IU/L (<50); Albumin 4.3 g/dL (3.5-5.0); Albumin Globulin Ratio 1.5 (1.0-2.8); Alkaline Phosphatase 77 U/L (38-126); Blood Urea Nitrogen 14 mg/dL (9-20); Calcium 9.5 mg/dL (8.4-10.2); Carbon Dioxide 27 mmol/L (22-32); Chloride 108 mmol/L (98-107); Estimated Glomerular Filt Rate > 60 mL/min (>60); Globulin 2.9 g/dL (1.7-4.1); Glucose 108 mg/dL (70-99); HEMOLYSIS < 15 (0-50); Potassium 4.3 mmol/L (3.4-5.1); Sodium 141 mmol/L (137-145); Total Protein 7.2 g/dL (6.3-8.2)
[2024-10-26 10:22] LABS: NT-proBNP (BNP-Adult 18+) 58 pg/mL (<125); Troponin I < 0.012 ng/mL (0.01-0.034)
--- NOTE | 2024-10-26 11:44 | DI.CT.S_ITS ---
PROCEDURE: CT ANGIO CHEST PE PROTOCOL INDICATIONS: Shortness of breath, right-sided chest pain, positive D-dime TECHNIQUE: After the administration of intravenous contrast, 2 mm thick sections acquired from the pulmonary apices to the posterior costophrenic angles. 3-dimensional maximum intensity projection (MIP) coronal and sagittal reformats were then acquired through the thorax. For radiation dose reduction, the following was used: automated exposure control, adjustment of mA and/or kV according to patient size. COMPARISON: None. FINDINGS: Image quality: Diagnostic. Pulmonary arteries: Pulmonary arteries are normal in size, and demonstrate no intraluminal filling defects to suggest central pulmonary embolism. Coronary artery vascular calcifications Lower Neck: No enlarged lymph nodes. Thyroid: No thyroid nodules which require sonographic follow up, per consensus guidelines. Axillae: No enlarged lymph nodes. Chest Wall: Unremarkable. Bones: Unremarkable. Lungs and Pleura: Left lower lobe focal consolidation and infiltrate Heart: Heart size is normal. No pericardial effusion. Thoracic Vessels: No aortic aneurysm. Mediastinum and Lucy: No enlarged lymph nodes. Esophagus: No wall thickening. No hiatal hernia. Upper Abdomen: Visualized upper abdomen solid organs and bowel loops appear normal. IMPRESSION: No evidence of pulmonary embolism, aortic dissection or aneurysm. Left lower lobe pneumonia Approved by: Quinn Sheriff M.D. on 10/26/2024 at 12:03
== END 2024-10-26 13:32 | disposition home or self-care (01) ==
PROVIDERS: Emergency Provider Emergency Medicine
DX: J18.9 Pneumonia, unspecified organism (principal); R07.9 Chest pain, unspecified
CPT/HCPCS: 36415; 71046; 71275; 80053; 83605; 83880; 84484; 85025; 85379; 85610; 87637; 93005; 99283; 99284; Q9967